=== PATIENT | male | born 1975 | race Hispanic/Latino ===

== ENCOUNTER 2019-12-16 11:50 | Outpatient (RCR) | payer OTHER ==
--- NOTE | 2019-12-16 14:00 | NUR ---
History: Mr. Claudio is a 44 year old male seen at the [facility] for a Voice and Speech Evaluation. PMH includes 5 week hospitalization for COVID with 12 days of intubation, pt attempted to self extubate damaging vocal folds, DM, headaches, dizzy spells, neck/back pain, heart trouble, high blood pressure, bowel/bladder problems, liver/gallbladder problems, depression. Pt was initially diagnosed with COVID in August of 2019. 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 Mr. Claudio complained that his voice is very soft and people frequently ask him to repeat himself, he often speaks in a loud voice on the construction site. He also reported glottal luu and laryngeal pain after work and vocal breaks and a pinching feeling (globus sensation) on the right throughout the day. Per Mr. Claudio has poor adduction of his VF. Pt has a 6 year old daughter with Downs Syndrome at home and often raises his voice to be heard/understood by her. He easily gets out of breath when speaking and feels embarrassed about his voice. He does not c/o difficulty walking but sometimes feels dizzy. Mr. Claudio had difficulty swallowing and was on a liquid diet for one week after his extubation during his hospitalization and is now on a regular diet with thin liquids. He c/o of continuing globus sensation. He did not have a Modified Barium Swallow Evaluation (MBS) while hospitalized. Pt agreed to have objective test of swallow with MBS, order request will be included in this report. Current medications include Metformin 500 mg, Meloxican 7.5 mg, Metopolol 25 mg, Cetirizine 10 mg, Atorvastatin 20 mg, low dose Aspirin, Fluticasone spray, Ventolin inhaler Patient/family Goal: to be understood when he speaks, to have better breath control, to alleviate pain/irritation when speaking, to improve vocal loudness Acoustic measures: Sound Pressure Level (SPL, acoustic correlate of vocal loudness) measured with a sound level meter at a distance of 40 cm from mouth during 3 voice and speech tasks revealed the following SPL numbers: Average Range Adult Male Norm SUSTAINED VOWELS: 64 dB 69-76 dB 80-85 dB READIN dB 61-65 dB 80-85 dB CONVERSATION: 62 dB 61-64 dB 80-85 dB SUSTAINED VOWEL 9 seconds 9.1-9.4 seconds 25.89 seconds These results represented conversational vocal SPL levels and reduced vocal intonation that likely significantly reduce Mr. Figueroa speech intelligibility and communicative effectiveness. He also has difficulty with reduced diaphragmatic support, lending to quiet speech. Perceptual measures: Mr. Figueroa functional speech intelligibility is reduced 100% of the time. The patient reported that he is not loud enough in conversation 90% of the time. Completion of the Voice Handicap Index (VHI) reveals a perception of a severe voice disorder with Functional subscale at 26 Physical subscale at 30 Emotional subscale at 28 with a total of 84. Oral Motor Examination: An oral motor speech exam revealed the structures and function of Mr. Figueroa speech mechanism to be within normal limits. Average pitch range for sustained vowel is 100-250 Hz for an adult male. Evaluation of Mr. Figueroa pitch range is 81-195 Hz. 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 Voice deficits included reduced loudness, reduced pitch range, poor breath support and fatigue. He has a documented decrease in vocal adduction. Prognosis: Good for goals secondary to high level of patient motivation Recommendations: 1. It is recommended that Mr. Claudio attend voice therapy 1 x week 2. Recommend Modified Barium Swallow study to r/o aspiration and determine if dysphagia treatment is indicated. This will be scheduled after MD signs order. And before voice therapy is initiated. Long-Term Goal: Patient will use a loud voice to communicate effectively in daily interactions with family and friends with independence. Short-Term Goals: 1. Patient will increase vocal loudness during sustained phonation to reach a target sound pressure level of 80 dB with minimal cues measured at 40 cm from SPL instrument. 2. Patient will increase length of sustained vowel to 15-25 seconds with minimal assistance. 3. Patient with participate in digital laryngeal manipulation to ease laryngeal tension. 4. Patient will participate in exercises for vocal fold adduction with 80% accuracy and minimal assistance. 5. Patient will participate in respiration exercises to increase inspiratory and expiratory length to 8-10 seconds. 6. Patient will follow vocal hygiene protocol with independence. Starla Francois M.S. [facility]-PRODUCTION MAINTENANCE TECHNICIAN Date of Evaluation: 12/16/19 Voice Evaluation and treatment X 60 minutes NOMS Voice Level 4 MD Signature
== END 2020-01-06 ==
LOC: ST 11:50
PROVIDERS: ATTEND Otolaryngology
DX: R49.0 Dysphonia (principal)

== ENCOUNTER → 2020-01-24 | Outpatient (CLI) | payer OTHER | LOC: DX 09:22 | PROVIDERS: ATTEND Otolaryngology | DX: R13.13 Dysphagia, pharyngeal phase (principal); R49.9 Unspecified voice and resonance disorder | CPT/HCPCS: 74230; 92526; 92611; U0002 ==

== ENCOUNTER 2020-02-03 15:32 | Outpatient (RCR) | payer OTHER ==
--- NOTE | 2020-02-03 17:47 | NUR ---
Pt: Triston NavaMD: Dr. Catrachito Plascencia Date: 02/03/2020DOB: 1975 Voice Re-Evaluation and Swallow Treatment History: Mr. Claudio is a 44 year old male seen at the [facility] for a Voice and Speech Evaluation. PMH includes 5 week hospitalization for COVID with 12 days of intubation, pt attempted to self extubate damaging vocal folds, DM, headaches, dizzy spells, neck/back pain, heart trouble, high blood pressure, bowel/bladder problems, liver/gallbladder problems, depression. Pt was initially diagnosed with COVID in August of 2019. 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 Mr. Claudio complained that his voice is very soft and people frequently ask him to repeat himself, he often speaks in a loud voice on the construction site. He also reported glottal luu and laryngeal pain after work and vocal breaks and a pinching feeling (globus sensation) on the right throughout the day. Per Mr. Claudio has poor adduction of his VF. Pt has a 6 year old daughter with Downs Syndrome at home and often raises his voice to be heard/understood by her. He easily gets out of breath when speaking and feels embarrassed about his voice. He does not c/o difficulty walking but sometimes feels dizzy. Mr. Claudio had difficulty swallowing and was on a liquid diet for one week after his extubation during his hospitalization and is now on a regular diet with thin liquids. He c/o of continuing globus sensation. He did not have a Modified Barium Swallow Evaluation (MBS) while hospitalized. Pt agreed to have objective test of swallow with MBS, completed 01/24/20: pt presented with mild pharyngeal dysphagia c/b inconsistent premature spillage over the base of tongue, deep trace laryngeal penetration with thin liquids, and trace pharyngeal residue after the swallow. Dysphagia was judged to be secondary to decreased pharyngeal constriction, discoordiation of the swallow, and reduced laryngeal closure. While pt was not noted to aspiration, he will benefit from dysphagia therapy to reduce frequency or eliminate laryngeal penetration with thin liquids. Current medications include Metformin 500 mg, Meloxican 7.5 mg, Metopolol 25 mg, Cetirizine 10 mg, Atorvastatin 20 mg, low dose Aspirin, Fluticasone spray, Ventolin inhaler Patient/family Goal: to be understood when he speaks, to have better breath control, to alleviate pain/irritation when speaking, to improve vocal loudness Acoustic measures: Sound Pressure Level (SPL, acoustic correlate of vocal loudness) measured with a sound level meter at a distance of 40 cm from mouth during 3 voice and speech tasks revealed the following SPL numbers: Average Range Adult Male Norm Re-eval SUSTAINED VOWELS: 64 dB 69-76 dB 80-85 dB 84.7 dB READIN dB 61-65 dB 80-85 dB not re-assessed CONVERSATION: 62 dB 61-64 dB 80-85 dB 69.5 SUSTAINED VOWEL 9 seconds 9.1-9.4 seconds 25.89 seconds 12.7 seconds These results represented conversational vocal SPL levels and reduced vocal intonation that likely significantly reduce Mr. Figueroa speech intelligibility and communicative effectiveness. He also has difficulty with reduced diaphragmatic support, lending to quiet speech. Perceptual measures: Mr. Figueroa functional speech intelligibility is reduced 0% of the time. The patient reported that he is not loud enough in conversation 50% of the time. Completion of the Voice Handicap Index (VHI) on initial evaluation revealed a perception of a severe voice disorder with Functional subscale at 26 Physical subscale at 30 Emotional subscale at 28 with a total of 84. VHI was not re-assessed at this visit Oral Motor Examination: An oral motor speech exam revealed the structures and function of Mr. Figueroa speech mechanism to be within normal limits. Average pitch range for sustained vowel is 100-250 Hz for an adult male. Evaluation of Mr. Figueroa pitch range was 81-195 Hz on his first visit and today it was 76- 215 Hz. Impressions: Mr. 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 Voice deficits included reduced loudness, reduced pitch range, poor breath support and fatigue. He has a documented decrease in vocal adduction. Prognosis: Good for goals secondary to high level of patient motivation Recommendations: 1. It is recommended that Mr. Claudio attend voice and dysphagia therapy 1 x week x 4 weeks 2. Recommend Modified Barium Swallow study to r/o aspiration and determine if dysphagia treatment is indicated. Completed on 01/24/20, results above. 3. Patient will participate in Neuromuscular Electrical Stimulation each session for 30-60 minutes while safely drinking water. Long-Term Goal: Patient will use a loud voice to communicate effectively in daily interactions with family and friends with independence. Short-Term Goals: 1. Patient will increase vocal loudness during sustained phonation to reach a target sound pressure level of 80 dB with minimal cues measured at 40 cm from SPL instrument. Pt at average of 84.7 dB today, increase goal to 90 dB. 2. Patient will increase length of sustained vowel to 15-25 seconds with minimal assistance. Pt at 9.5 seconds today. 3. Patient with participate in digital laryngeal manipulation to ease laryngeal tension. Pt participated with no pain and palpable improvement in laryngeal movement after 5 minutes of manipulation. 4. Patient will participate in exercises for vocal fold adduction with 80% accuracy and minimal assistance. Delete Goal 5. Patient will participate in respiration exercises to increase inspiratory and expiratory length to 8-10 seconds. Delete goal and measure with sustained vowel data. 6. Patient will follow vocal hygiene protocol with independence. Pt completing program with independence. 7. Patient will increase pitch variation to normal range for an adult male. Pt close to norms in todays session. 8. Patient will participate in Neuromuscular Electrical Stimulation each session for 30-60 minutes while safely drinking water. Patient completed 30 minutes of NMES at this session with throat clear x 4 at max of 5.5 mA, tolerated NMES well. Starla Francois M.S. CCC-CPO Date of Evaluation: 02/03/20 Voice Re-Evaluation and swallow treatment X 60 minutes NOMS Voice Level 5 MD Signature date
== END 2020-02-05 ==
LOC: ST 15:32
PROVIDERS: ATTEND Otolaryngology
DX: R49.0 Dysphonia (principal)

== ENCOUNTER 2020-02-10 15:31 | Outpatient (RCR) | payer OTHER | END 2020-03-07 | LOC: ST 15:31 | PROVIDERS: ATTEND Otolaryngology | DX: R13.13 Dysphagia, pharyngeal phase (principal) ==